=== PATIENT | female | born 1985 | race Caucasian/White ===

== ENCOUNTER 2021-10-21 14:52 | Emergency (ER) | payer MEDICAID ==
[~2021-10-21] VITALS: Ht 170.2 cm; Wt 63.6 kg
[~2021-10-21 14:52] MED LIST: HYDR-3965 PO; PENI500T2 PO
[2021-10-21 14:54] VITALS: BP 100/64
[2021-10-21] MEDS ORDERED: ORPH100T2 PO (15:11)
[2021-10-21] MEDS ORDERED: HYDR-3972 PO (15:11)
== END 2021-10-21 15:24 | disposition home or self-care (01) ==
LOC: ER 14:52
DX: M54.50 Low back pain, unspecified (principal); M79.18 Myalgia, other site; G89.29 Other chronic pain; F17.200 Nicotine dependence, unspecified, uncomplicated; Z72.89 Other problems related to lifestyle; Z79.899 Other long term (current) drug therapy
CPT/HCPCS: 99283

== ENCOUNTER 2021-11-01 17:16 | Emergency (ER) | payer MEDICAID ==
[~2021-11-01] VITALS: Ht 170.2 cm; Wt 65.0 kg
[~2021-11-01 17:16] MED LIST changes: +HYDR-3972 PO; +ORPH100T2 PO
[2021-11-01 20:30] VITALS: BP 136/79
[2021-11-01] MEDS ORDERED: ketorolac trometh. 30mg/ml inj. IM ONE (22:45)
[2021-11-01] MEDS ORDERED: cyclobenzaprine 10mg tablet PO ONE (22:45)
[2021-11-01] MEDS ORDERED: CYCL-1 PO (22:45)
[2021-11-01] MEDS ORDERED: HYDROcodone/acetaminophen 5mg/325mg tablet PO ONE (22:45)
[2021-11-01] MEDS ORDERED: HYDR-3965 PO (22:45)
== END 2021-11-01 23:03 | disposition home or self-care (01) ==
LOC: ER 17:17
DX: M54.32 Sciatica, left side (principal); G89.29 Other chronic pain; M54.9 Dorsalgia, unspecified; F17.210 Nicotine dependence, cigarettes, uncomplicated; Z88.6 Allergy status to analgesic agent; Z88.8 Allergy status to other drugs, medicaments and biological substances; Z79.899 Other long term (current) drug therapy
CPT/HCPCS: 96372; 99283; J1885

== ENCOUNTER 2021-11-13 14:19 | Emergency (ER) | payer MEDICAID ==
[~2021-11-13] VITALS: Ht 170.2 cm; Wt 68.2 kg
[~2021-11-13 14:19] MED LIST changes: +CYCL-1 PO
[2021-11-13 14:26] VITALS: BP 114/75
[2021-11-13] MEDS ORDERED: ketorolac trometh inj. 60 MG/2 ML VIAL IM ONE (16:35)
== END 2021-11-13 17:17 | disposition home or self-care (01) ==
LOC: ER 14:20
DX: S39.012A Strain of muscle, fascia and tendon of lower back, initial encounter (principal); M54.32 Sciatica, left side; G89.29 Other chronic pain; M54.9 Dorsalgia, unspecified; Z88.6 Allergy status to analgesic agent; Z79.899 Other long term (current) drug therapy; W18.39XA Other fall on same level, initial encounter; Y93.89 Activity, other specified; Y92.89 Other specified places as the place of occurrence of the external cause; Y99.8 Other external cause status
CPT/HCPCS: 96372; 99284; J1885

== ENCOUNTER 2021-11-16 12:39 | Emergency (ER) | payer MEDICAID ==
[~2021-11-16] VITALS: Ht 170.2 cm; Wt 69.5 kg
[2021-11-16 12:43] VITALS: BP 102/72
[2021-11-16] MEDS ORDERED: PRED20TA PO (14:31)
[2021-11-16] MEDS ORDERED: NAPR-56 PO (14:31)
[2021-11-16] MEDS ORDERED: CYCL-1 PO (14:35)
== END 2021-11-16 14:50 | disposition home or self-care (01) ==
LOC: ER 12:39
DX: M54.42 Lumbago with sciatica, left side (principal); G89.29 Other chronic pain; Z88.6 Allergy status to analgesic agent; Z79.899 Other long term (current) drug therapy; Z88.8 Allergy status to other drugs, medicaments and biological substances
CPT/HCPCS: 99283

== ENCOUNTER 2022-03-31 08:43 | Emergency (ER) | payer MEDICAID ==
[~2022-03-31] VITALS: Ht 172.7 cm; Wt 65.9 kg
[~2022-03-31 08:43] MED LIST changes: -HYDR-3972 PO
[2022-03-31 08:54] VITALS: BP 109/73
[2022-03-31] MEDS ORDERED: cyclobenzaprine 10mg tablet PO ONE (09:15)
[2022-03-31 11:03] LABS: CLARITY,URINE CLOUDY (Clear); COLOR,URINE YELLOW (Yellow); GLUCOSE, URINE NEGATIVE (Neg); KETONES,URINE TRACE mg/dl (Neg); LEUKOCYTE ESTERASE ,URINE NEGATIVE (Neg); NITRITES, URINE NEGATIVE (Neg); OCCULT BLOOD,URINE NEGATIVE (Neg); PH,URINE 5.5 (4.8-8.0); PROTEIN,URINE TRACE mg/dl (Neg); UROBILINOGEN,URINE 0.2 E.U/dL (0.2-1.0)
[2022-03-31 11:05] LABS: UA COLLECTION TYPE CLN CATCH MIDSTREAM
[2022-03-31 11:16] LABS: MUCUS STRANDS MANY /LPF (Neg); SQUAMOUS EPITHELIAL CELL,UR MANY /LPF (FEW)
[2022-03-31 11:17] LABS: BACTERIA,URINE 2+ /HPF (Neg); RBC,URINE 0-2 /HPF (0-2); WBC,URINE 0-4 /HPF (0-4)
[2022-03-31 11:26] LABS: URINE HCG NEGATIVE (NEG)
[2022-03-31] MEDS ORDERED: CYCL-1 PO (11:46)
[2022-03-31] MEDS ORDERED: HYDR-3965 PO (11:49)
== END 2022-03-31 12:00 | disposition home or self-care (01) ==
LOC: ER 08:44
DX: M46.1 Sacroiliitis, not elsewhere classified (principal); G89.29 Other chronic pain; M54.50 Low back pain, unspecified; Z88.6 Allergy status to analgesic agent
CPT/HCPCS: 72100; 81001; 81025; 99284

== ENCOUNTER 2022-04-28 14:16 | Emergency (ER) | payer MEDICAID ==
[~2022-04-28] VITALS: Ht 170.2 cm; Wt 65.9 kg
[2022-04-28 14:49] VITALS: BP 104/77
[2022-04-28] MEDS ORDERED: HYDROcodone/acetaminophen 10/325mg tab PO ONE (18:35)
[2022-04-28] MEDS ORDERED: ondansetron 4mg rapidly disintigrating tab PO ONE (18:35)
[2022-04-28] MEDS ORDERED: ONDA4TAB12 PO (18:50)
[2022-04-28] MEDS ORDERED: HYDR-3965 PO (18:50)
== END 2022-04-28 19:11 | disposition home or self-care (01) ==
LOC: ER 14:17
DX: S83.92XA Sprain of unspecified site of left knee, initial encounter (principal); S43.402A Unspecified sprain of left shoulder joint, initial encounter; Z88.6 Allergy status to analgesic agent; X50.9XXA Other and unspecified overexertion or strenuous movements or postures, initial encounter; Y93.89 Activity, other specified; Y92.89 Other specified places as the place of occurrence of the external cause; Y99.8 Other external cause status
CPT/HCPCS: 73030; 73564; 99284; A6449

== ENCOUNTER 2022-05-03 17:37 | Emergency (ER) | payer MEDICAID ==
[~2022-05-03] VITALS: Ht 170.2 cm; Wt 145.0 kg
[~2022-05-03 17:37] MED LIST changes: +ONDA4TAB12 PO
[2022-05-03 18:08] VITALS: BP 111/76
[2022-05-03] MEDS ORDERED: acetaminophen w/codeine (30MG) #3 tablet PO ONE (21:10)
[2022-05-03] MEDS ORDERED: ACET-1059 PO (21:27)
== END 2022-05-03 21:40 | disposition home or self-care (01) ==
LOC: ER 17:38
DX: M25.562 Pain in left knee (principal); G89.29 Other chronic pain; M54.50 Low back pain, unspecified; F12.90 Cannabis use, unspecified, uncomplicated; Z90.710 Acquired absence of both cervix and uterus; Z88.6 Allergy status to analgesic agent
CPT/HCPCS: 29505; 99283

== ENCOUNTER 2022-09-15 11:55 | Emergency (ER) | payer MEDICAID ==
[~2022-09-15] VITALS: Ht 175.3 cm; Wt 68.0 kg
[2022-09-15 12:08] VITALS: BP 148/74
[2022-09-15] MEDS ORDERED: LIDOcaine 1% 30ml preserv. free vial SQ STA (13:28)
--- NOTE | 2022-09-15 13:30 | NUR ---
GIVEN DENTAL BOX
[2022-09-15] MEDS ORDERED: HYDR-3965 PO (14:07)
[2022-09-15] MEDS ORDERED: AMOX-117 PO (14:07)
== END 2022-09-15 14:36 | disposition home or self-care (01) ==
LOC: ER 11:56
DX: S02.5XXA Fracture of tooth (traumatic), initial encounter for closed fracture (principal); G89.29 Other chronic pain; F17.200 Nicotine dependence, unspecified, uncomplicated; F12.90 Cannabis use, unspecified, uncomplicated; Z90.710 Acquired absence of both cervix and uterus; Z88.6 Allergy status to analgesic agent; Z88.8 Allergy status to other drugs, medicaments and biological substances; Z79.899 Other long term (current) drug therapy; X58.XXXA Exposure to other specified factors, initial encounter; Y93.89 Activity, other specified; Y92.89 Other specified places as the place of occurrence of the external cause; Y99.8 Other external cause status
CPT/HCPCS: 64400; 99284

== ENCOUNTER 2024-04-01 07:45 | Emergency (ER) | payer MEDICAID ==
[~2024-04-01] VITALS: Ht 170.2 cm; Wt 72.7 kg
[~2024-04-01 07:45] MED LIST changes: +ONDA-243 PO; -ONDA4TAB12 PO; -ORPH100T2 PO; +ORPH100T4 PO
[2024-04-01 09:00] VITALS: BP 130/69; PULSE 78; RESP 16; O2SAT 100
[2024-04-01] MEDS ORDERED: ONDA-243 PO (09:09)
[2024-04-01 09:30] VITALS: TEMP 97.8
== END 2024-04-01 09:38 | disposition home or self-care (01) ==
LOC: ER 07:45
DX: J22 Unspecified acute lower respiratory infection (principal); J11.1 Influenza due to unidentified influenza virus with other respiratory manifestations; G89.29 Other chronic pain; M54.9 Dorsalgia, unspecified; F12.90 Cannabis use, unspecified, uncomplicated; Z88.6 Allergy status to analgesic agent; Z79.899 Other long term (current) drug therapy; Z90.710 Acquired absence of both cervix and uterus
CPT/HCPCS: 99283

== ENCOUNTER 2024-12-21 17:46 | Emergency (ER) | payer MEDICAID ==
[~2024-12-21] VITALS: Ht 170.2 cm; Wt 63.0 kg
[2024-12-21 17:51] VITALS: BP 127/71; PULSE 82; O2SAT 99
--- NOTE | 2024-12-21 19:07 | Physician Documentation ---
History of Present Illness ~ Chief Complaint: Shoulder pain Stated Complaint: SHOULDER PAIN Time Seen by MD: 19:06 [facility] [place] [facility] 39-year-old female who presents with right shoulder pain after a fall. She tells me that she tripped going down a couple of stairs, and hit the front of her right shoulder against the edge of a metal door jam. Since that time she has reported pain in the anterior shoulder. She states it is hard to raise her shoulder up to the pain. She took Tylenol and used ice without much relief. She denies any head injury or other associated injuries. She is right-handed. No tingling numbness or weakness to her right hand. Tetanus within 5 years?: Yes Medication Reconciliation Allergies: Coded Allergies: ibuprofen (Unverified Allergy, Intermediate, stated to her that she is at increased risk for GI bleed, 05/28/24) Thinning of the lining of her intestines ketorolac (Unverified Allergy, Intermediate, 05/28/24) hives Scheduled Cyclobenzaprine* (Cyclobenzaprine*), 1 TAB PO TID Cyclobenzaprine* (Cyclobenzaprine*), 1 TAB PO Q8H Cyclobenzaprine* (Cyclobenzaprine*), 1 TAB PO Q8H ONDANSETRON ODT 4mg tablet (Ondansetron Odt), 1 TABLET PO Q6H Orphenadrine Citrate (Norflex), 1 TAB PO Q12H PRN Penicillin V Potassium* (Penicillin VK*), 500 MG PO Q6H Scheduled PRN Hydrocodone Bit/Acetaminophen 5/325 MG ([place] 5/325 MG), 1 TAB PO Q6H PRN for moderate or severe pain ONDANSETRON ODT 4mg tablet (Ondansetron Odt), 1 TAB PO Q6H PRN PRN for nausea/vomiting Past Medical History Past Medical History: GI Bleed, Chronic Back Pain Past Surgical History: hysterectomy Alcohol Use: Rarely Drug Use: marijuana Lives with: Family Lives In: Home Occupation: employed Review of Systems Neurological: Denies: headache, dizziness Musculoskeletal: Reports: pain Physical Exam Vital Signs: Temperature: 99.0, Source: Oral, Heart Rate: 82, Respiratory Rate: 16, BP: 127/71, Pulse Oximetry: 99, Weight: 63.000 Oxygen Flow Rate: 0 Physical Exam General: This is a healthy-appearing young woman, family at bedside HEENT: Atraumatic, oropharynx is moist Heart: Regular rate, normal-appearing peripheral perfusion to the right hand, strong radial pulse Lungs: Clear breath sounds bilateral, normal work of breathing, normal oxygen saturation on room air Extremities: Warm and well-perfused Right upper extremity: The patient has focal tenderness to palpation over the anterior right shoulder, around the AC joint region. Otherwise no focal bony point tenderness on palpation of the clavicle or bones of the shoulder or arm. She has limited active were shoulder abduction due to pain, but passive range of motion is intact. Normal sensation and strength to the right hand. Neuro: Alert and oriented, no focal deficits Psychiatric: Calm and cooperative with exam Progress Results/Orders Results/Orders Completed Orders - JHONNY MEYERS MD Oxycodone Immed Release Tablet (Oxy Ir T (12/21/24 19:50) Vital Signs 12/21/24 12/21/24 12/21/24 17:51 20:07 20:09 Temp 99.0 99.0 Pulse 82 Resp 16 16 B/P (MAP) 127/71 Pulse Ox 99 O2 Flow Rate 0 EKG/XRAY/CT/US/VASC/MRI Bone/Soft Tissue X-Ray (Ext.) : Additional Comment I personally reviewed the x-ray, and it shows: No acute shoulder fracture, dislocation, or other bony abnormality Medical Decision Making Differential Dx:Considerations: Include: AC separation, Contusion, Dislocation, Fracture: Humerus, Fracture: Clavicle Additional Comments The patient presents with 2 days of right shoulder pain after a fall. On exam she has findings that seem most consistent with a contusion or sprain. X-ray does not show an acute fracture or dislocation on my preliminary read. She is neurovascularly intact. Her primary request is for pain medication. I explained that we can not prescribe opiate pain medications for injuries that are not severe, and so she will be given a dose of pain medicine here and continue with symptomatic treatment at home and outpatient follow up. Departure Time of Disposition: 19:51 Disposition: 01 HOME / SELF CARE / HOMELESS Impression: Primary Impression: Contusion of shoulder, right Condition: Stable Discharge Instructions: Shoulder Pain Referrals: NO PRIMARY CARE PROVIDER (PCP) Education Educated: Patient Educated regarding: diagnosis, treatment Signature Scribe Signature: na Attestation: JHONNY Phillips MD December 21, 2024 19:07
[2024-12-21 20:07] VITALS: RESP 16
[2024-12-21] MEDS: oxyCODONE IR 5mg (immed. release) tablet PO ONE (20:07)
[2024-12-21 20:09] VITALS: TEMP 99
--- NOTE | 2024-12-25 15:23 | RADIOLOGY REPORT ---
CLINICAL INDICATION: Shoulder Pain TECHNIQUE: 2 radiographic views of the right shoulder were obtained. Comparison: SHOULDER, COMPLETE (MIN 2 VWS) on DOS: 04/28/22 FINDINGS/IMPRESSION: There is no evidence of acute fracture or dislocation. The visualized joint space is well maintained. The alignment is anatomical. There is no radiopaque foreign body.
== END 2024-12-21 20:10 | disposition home or self-care (01) ==
LOC: ER 17:46
DX: S40.011A Contusion of right shoulder, initial encounter (principal); F12.90 Cannabis use, unspecified, uncomplicated; Z90.710 Acquired absence of both cervix and uterus; Z88.6 Allergy status to analgesic agent; Z79.899 Other long term (current) drug therapy; W18.39XA Other fall on same level, initial encounter; Y93.89 Activity, other specified; Y92.89 Other specified places as the place of occurrence of the external cause; Y99.8 Other external cause status
CPT/HCPCS: 73030; 99284

== ENCOUNTER 2025-04-13 02:23 | Emergency (ER) | payer MEDICAID ==
[~2025-04-13] VITALS: Ht 170.2 cm; Wt 65.2 kg
[2025-04-13 02:29] VITALS: BP 124/82; PULSE 100; RESP 15; TEMP 97.8; O2SAT 99
--- NOTE | 2025-04-13 03:24 | RADIOLOGY REPORT ---
CHEST RADIOGRAPH Indication: ccc Technique: 2 views Comparison: None FINDINGS: Lines and Tubes: None Lungs/Pleura: No focal consolidation, pleural effusion or pneumothorax. Cardiomediastinum: Unremarkable. Other: No acute osseous abnormality. IMPRESSION: 1. No acute cardiopulmonary abnormality.
--- NOTE | 2025-04-13 03:30 | Physician Documentation ---
History of Present Illness ~ Chief Complaint: Cold, cough & congestion Stated Complaint: FLU SYMPTOMS Time Seen by MD: 03:27 Primary Medical Doctor: [facility] in [facility] This is a 40-year-old female with no significant past medical history, healthy, presents for evaluation of sore throat that started last night, woke up this morning with fever, chills, body aches, malaise, generalized weakness. No particular palliating or aggravating factors. Did not attempt to treat it. She is allergic to ibuprofen but did not take any Tylenol because she decided to come straight to the emergency department. She reports some cough as well, n onproductive and dry. Does not come in coughing fits. Denies any chest pain or difficulty breathing. Denies any nausea, vomiting, diarrhea, abdominal pain. She smokes. Denies drug use or alcohol use. Denies any chance of being . Medication Reconciliation Allergies: Coded Allergies: ibuprofen (Unverified Allergy, Intermediate, stated to her that she is at increased risk for GI bleed, 04/13/25) Thinning of the lining of her intestines ketorolac (Unverified Allergy, Intermediate, 04/13/25) hives Scheduled Cyclobenzaprine* (Cyclobenzaprine*), 1 TAB PO TID Cyclobenzaprine* (Cyclobenzaprine*), 1 TAB PO Q8H Cyclobenzaprine* (Cyclobenzaprine*), 1 TAB PO Q8H ONDANSETRON ODT 4mg tablet (Ondansetron Odt), 1 TABLET PO Q6H Orphenadrine Citrate (Norflex), 1 TAB PO Q12H PRN Penicillin V Potassium* (Penicillin VK*), 500 MG PO Q6H Scheduled PRN Hydrocodone Bit/Acetaminophen 5/325 MG ([place] 5/325 MG), 1 TAB PO Q6H PRN for moderate or severe pain ONDANSETRON ODT 4mg tablet (Ondansetron Odt), 1 TAB PO Q6H PRN PRN for nausea/vomiting Past Medical History Past Medical History: GI Bleed, Chronic Back Pain Past Surgical History: hysterectomy Alcohol Use: Rarely Drug Use: marijuana Lives with: Family Lives In: Home Occupation: employed Review of Systems ROS 10 point review of systems was performed and unless noted above in HPI is negative for acute process/complaint. Physical Exam Vital Signs: Temperature: 97.8, Source: Temporal, Heart Rate: 100, Respiratory Rate: 15, BP: 124/82, Pulse Oximetry: 99, Weight: 65.200 Physical Exam Physical examination: GENERAL: Awake, alert, oriented, GCS 15, no apparent distress, non-toxic appearing, answers questions, follows commands appropriately. Examined in triage, accompanied by a female cut pressman HEENT: Atraumatic, normocephalic, pupils equal, extraocular muscles intact Active gross movements, sclerae anicteric, mucus membranes moist, no stridor. NECK: Midline, no JVD CARDIOVASCULAR: Good skin perfusion without evidence of pallor, mottling. PULMONARY: Nonlabored, symmetric chest rise, no audible wheezing, no accessory muscle use, no respiratory distress, speaking in full sentences. GASTROINTESTINAL: Not distended. NEUROLOGIC: Lucid with normal mental status. Normal facial symmetry. Moves all extremities symmetrically and with purpose. No truncal ataxia. Speech is fluid without evidence of dysarthria or aphasia, no focal deficits appreciated. EXTREMITIES: Acute deformities Skin: warm, dry PSYCHIATRIC: Normal affect, normal insight, normal concentration. Focused exam: [] Progress Results/Orders Results/Orders Orders - MAURISIO MOONEY DO Covid19 Binax Poc Result Entry (04/13/25 02:46) Chest,Two Views (04/13/25 02:46) Completed Orders - MAURISIO MOONEY DO Chest,Two Views (04/13/25 02:46) Vital Signs 04/13/25 02:29 Temp 97.8 Pulse 100 Resp 15 B/P (MAP) 124/82 Pulse Ox 99 Laboratory Tests Test 04/13/25 02:52 SARS-CoV-2 Antigen (Rapid) Positive *A Medical Decision Making Findings Facility Status: ED Holds, [facility] process The plan was discussed with the patient, who demonstrates clear understanding of the plan and is in agreement with the plan unless otherwise noted in the chart. All questions have been answered, all concerns were addressed unless otherwise documented. I was available throughout their ED stay for frequent reassessment and questions. Differential Diagnoses (considered and possible or likely): [COVID, influenza, RSV, upper respiratory infection with the top of the viruses, bacterial pneumonia] ??Differential Diagnoses (considered and unlikely, not requiring evaluation currently): [Unlikely CHF, ACS] MDM Data Please see HPI for the following: Independent Historians and external Records Review. Historian: [Patient] Independent Historians: ?[None] Medication Management: [Reviewed medication list] Social History and determinants: [Reviewed] Please see the body of the note for the following: Any independent interpretations of ECG, imaging studies. All vitals signs/haemodynamics, ordered tests were independently reviewed and interpreted by myself. Nursing triage complaint and vitals reviewed, additional nursing notes were reviewed as available and I agree unless otherwise noted or documented in contradiction in the chart Vital Signs: Independently reviewed Labs: Independently interpreted Imaging: Independently interpreted Old Medical Records: Independently reviewed, see HPI for relevant summary and information Pulse Oximetry: [99%] interpreted as [normal on room air] by me Additionally notably showing: [Hemodynamically stable. COVID positive. Chest x-ray unremarkable.] Tests considered but not ordered include: [Patient is very well-appearing, I did not suspect that she needs blood work at this time.] Social Determinants of Health Impact: Patient was evaluated in [facility], [facility] [place] to healthcare due to below par ratio of patient to medical providers. [] Comorbid Conditions Impacting Present Evaluation and Care/Treatment: [None] Management Discussions with other Healthcare Providers: [None] Treatment and Disposition Medication Management (Given or considered): []. See EMR for details Consideration for Hospitalization/Escalation/Deescalation of Care: Admission for observation has been considered, [however the patient is able to tolerate p.o., their symptoms are controlled, they are able to rely on oral medications, and their chief complaint/diagnosis can be managed on outpatient basis.] ?ED Course:?[No clinical deterioration] ?Shared decision making:?[Patient is hemodynamically stable for discharge home with follow with their primary care provider. [ ] Specific and cautious return precautions provided and discussed with full understanding. Any incidental findings were also discussed and follow up recommendations given. [] All questions answered. Patient/family were able to verbalize back return precautions. Patient/family agree to plan. Copies of imaging and laboratory studies were provided.] Code status:?FULL Please see the full Electronic Medical Record for full details of nursing documentation, medications list, other records of complete past medical history and conditions, vital signs, laboratory studies, and any radiologic study interpretations by radiologists. Portions of this note were completed using [employer] dictation software and as a result there may exist minor errors in spelling. I have reviewed elements of past family and social history and agree as included in note. Departure Disposition: 01 HOME / SELF CARE / HOMELESS Impression: Primary Impression: COVID-19 virus infection Condition: Stable Discharge Instructions: Upper Respiratory Infection, Adult Referrals: NO PRIMARY CARE PROVIDER (PCP) Education Educated: Patient, Other Educated regarding: diagnosis, treatment, prognosis, need for follow up Signature Scribe Signature: No scribe Attestation: Date: Apr 13, 2025 Time: 03:30 This note accurately reflects clinical decisions, work performed by myself, Maurisio Mooney, MAURISIO TURCIOS DO Apr 13, 2025 03:30
== END 2025-04-13 03:34 | disposition home or self-care (01) ==
LOC: ER 02:24
DX: U07.1 COVID-19 (principal); F12.90 Cannabis use, unspecified, uncomplicated; G89.29 Other chronic pain; F17.200 Nicotine dependence, unspecified, uncomplicated; Z90.710 Acquired absence of both cervix and uterus; Z88.6 Allergy status to analgesic agent; Z79.899 Other long term (current) drug therapy
CPT/HCPCS: 36415; 71046; 87811; 99284